=== PATIENT | female | born 1990 | race Native Hawaiian/Other Pacific Islander ===

== ENCOUNTER → 2020-12-09 10:33 | Outpatient (CLI) | payer OTHER, SELFPAY ==
[2020-12-09 11:50] LABS: HCG Quantitative /Beta subunit 76.8 mIU/mL
== END ==
PROVIDERS: Referring Provider Family Medicine; Visit Provider Family Medicine
DX: O03.9 Complete or unspecified spontaneous abortion without complication (principal)
CPT/HCPCS: 36415; 84702; 86850; 86900; 86901

== ENCOUNTER → 2021-05-10 13:56 | Outpatient (CLI) | payer OTHER, SELFPAY ==
[2021-05-10 15:54] LABS: HCG Quantitative /Beta subunit 457.6 mIU/mL
[2021-05-10 17:08] LABS: Follicle Stimulating Hormone < 0.66 mIU/mL; Luteinizing Hormone 0.61 mIU/mL
[2021-05-10 17:20] LABS: TSH w/ Reflex to FT4 1.17 uIU/mL (0.47-4.68)
== END ==
PROVIDERS: Referring Provider Registered Nurse Diabetes Educator; Visit Provider Registered Nurse Diabetes Educator
DX: N91.5 Oligomenorrhea, unspecified (principal); Z31.9 Encounter for procreative management, unspecified; Z87.59 Personal history of other complications of pregnancy, childbirth and the puerperium
CPT/HCPCS: 36415; 82627; 82670; 83001; 83002; 83498; 84146; 84403; 84443; 84702

== ENCOUNTER → 2021-05-12 07:04 | Outpatient (CLI) | payer OTHER, SELFPAY ==
[2021-05-12 09:26] LABS: HCG Quantitative /Beta subunit 981.1 mIU/mL
== END ==
PROVIDERS: Referring Provider Registered Nurse Diabetes Educator; Visit Provider Registered Nurse Diabetes Educator
DX: Z34.90 Encounter for supervision of normal pregnancy, unspecified, unspecified trimester (principal)
CPT/HCPCS: 36415; 84702

== ENCOUNTER → 2021-06-09 09:51 | Outpatient (CLI) | payer OTHER, SELFPAY ==
--- NOTE | 2021-06-09 09:52 | DI.US.S_ITS ---
PROCEDURE: US OB <= 14 WEEKS FETUS INDICATIONS: Initial US for Dating and Viability please, recent SAB OUTSIDE/PRIOR DATING DATA: Last menstrual period (LMP): Not available. LMP-based estimated date of delivery (ANNETTA): Not available. First dating scan (date and location): This exam. Estimated date of delivery (ANNETTA) from first dating scan: 01/15/2022. TECHNIQUE: Real-time scanning was performed of the fetus and maternal pelvic organs, with image documentation. Endovaginal scanning was also performed to better visualize the fetus and maternal ovaries. COMPARISON: None. FINDINGS: Embryo: There is a single living intrauterine with a pole and cardiac activity. heart rate is 173 BPM. The estimated gestational age is 8 weeks 4 days. Measurement variability in dating: +/- 4 weeks by LMP, +/- 7 days by mean sac diameter (use before 6 weeks gestation if crown-rump length not able to be measured), +/- 5 days by crown-rump length (up to 8 weeks 6 days gestation), +/- 7 days by crown-rump length (up to 13 weeks 6 days gestation). Maternal organs: Ovaries are grossly normal. IMPRESSION: 1. A single living intrauterine gestation with an estimated gestational age of 8 weeks 4 days corresponding to ultrasound ANNETTA 01/15/2022. Dictated by: Nilson Summers M.D. on 06/09/2021 at 11:15 Approved by: Nilson Summers M.D. on 06/09/2021 at 11:18
== END ==
PROVIDERS: PCP Family Medicine; Referring Provider Family Medicine; Visit Provider Family Medicine
DX: Z36.87 Encounter for antenatal screening for uncertain dates (principal); Z3A.08 8 weeks gestation of pregnancy
CPT/HCPCS: 76801; 76817

== ENCOUNTER → 2021-06-19 12:43 | Outpatient (CLI) | payer OTHER, SELFPAY ==
[2021-06-19 13:44] LABS: Appearance Urine UA CLEAR; Bilirubin Urine UA NEGATIVE (NEGATIVE); Color Urine UA YELLOW; Glucose Urine UA NEGATIVE (Negative); Ketones Urine UA NEGATIVE (NEGATIVE); Leukocyte Esterase Urine UA NEGATIVE (NEGATIVE); Nitrite Urine UA NEGATIVE (Negative); Occult Blood Urine UA TRACE-INTACT (Negative); Protein Urine UA NEGATIVE (Negative); Specific Gravity Urine UA 1.015 (1.000-1.035); Urobilinogen Urine UA 0.2 E.U./dL (0.2)
[2021-06-19 13:46] LABS: pH Urine UA 6.5 (4.5-8.0)
[2021-06-19 14:09] LABS: Hemoglobin A1C% w Est Avg Glu 5.4 % (4.0-6.0)
[2021-06-19 14:21] LABS: Alanine Aminotransferase 12 IU/L (<35); Albumin 3.9 g/dL (3.5-5.0); Albumin Globulin Ratio 1.1 (1.0-2.8); Alkaline Phosphatase 60 U/L (38-126); Aspartate Aminotransferase 22 IU/L (14-36); Bilirubin Total 0.1 mg/dL (0.2-1.3); Blood Urea Nitrogen 9 mg/dL (7-17); Calcium 9.4 mg/dL (8.4-10.2); Carbon Dioxide 25 mmol/L (22-32); Chloride 102 mmol/L (98-107); Estimated Glomerular Filt Rate > 60.0 mL/min (>60); Globulin 3.6 g/dL (1.7-4.1); Glucose 110 mg/dL (70-100); HEMOLYSIS < 15 (0-50); Potassium 3.6 mmol/L (3.4-5.1); Sodium 136 mmol/L (137-145); Total Protein 7.5 g/dL (6.3-8.2)
[2021-06-19 14:23] LABS: Add Manual Diff / Slide Review NO; Basophils Absolute Auto 0 /uL (0-100); Basophils Percent Auto 0.4 % (0-2); Eosinophils Absolute Auto 100 /uL (0-450); Eosinophils Percent Auto 0.6 % (2-4); Hematocrit 39.6 % (36-46); Hemoglobin 12.8 g/dL (12.0-16.0); Lymphocytes Absolute Auto 2100 /uL (1100-4500); Lymphocytes Percent Auto 18.8 % (25-40); Mean Corpuscular HGB Conc 32.3 % (30-36); Mean Corpuscular Hemoglobin 26.9 PG (26-34); Mean Corpuscular Volume 83.2 fL (80-100); Monocytes Absolute Auto 700 /uL (0-900); Neutrophils Absolute Auto 8400 /uL (1500-7000); Neutrophils Percent Auto 74.2 % (50-75); Platelet Count 273 X10^3/uL (150-400); Red Blood Cell Count 4.77 X10^6/uL (4.0-5.2); Red Cell Distribution Width 13.4 % (11.6-14.8); White Blood Cell Count 11.3 X10^3/uL (4.5-11.0)
[2021-06-19 17:28] LABS: HIV 1 & 2 Ab/Ag 4th Gen Combo NEGATIVE (NEGATIVE); Hep C Virus Ab w/Reflex Quant NEGATIVE s/c (NEGATIVE); Hepatitis B Surface Antigen NEGATIVE s/c (NEGATIVE)
[2021-06-20 08:16] LABS: RPR Screen Non Reactive (Non Reactive)
[2021-06-20 08:46] LABS: Varicella IgG Antibody 323 index (Immune >165)
[2021-06-20 15:07] LABS: Protein (Total) Urine Random 19 mg/dL (0-12)
[2021-06-20 17:12] LABS: Collection Time Urine 2400 Hours
[2021-06-20 17:13] LABS: Total Protein 24 Hour Urine 209 mg/day (42-225); Total Volume Urine 1100 mL
== END ==
PROVIDERS: PCP Family Medicine; Referring Provider Family Medicine; Visit Provider Family Medicine
DX: Z34.81 Encounter for supervision of other normal pregnancy, first trimester (principal); I10 Essential (primary) hypertension
CPT/HCPCS: 36415; 80053; 80055; 81003; 82043; 82570; 83036; 84156; 86787; 86803; 86850; 86900; 86901; 87086; 87389

== ENCOUNTER 2021-07-06 14:56 | Emergency (ER) | payer OTHER, SELFPAY ==
[2021-07-06 15:36] VITALS: BP 140/99; PULSE 83; RESP 16; TEMP 36.3; O2SAT 95; BMI 25.6
[2021-07-06] MEDS: FLUORESCEIN 1 MG STRIP EYE-LEFT (17:47)
[2021-07-06] MEDS: PROPARACAINE 0.5% OPHTH SOL 2 DROPS EYE-OP (17:47)
--- NOTE | 2021-07-06 17:56 | ED_ITS ---
HPI - Eye Problem <Faraz Seals PA-C - Last Filed: 07/06/21 18:02> General Chief complaint: Eye Problems Stated complaint: Left Eye Watering, Irritation Time Seen by Provider: 07/06/21 16:42 History of Present Illness HPI Narrative: Alexa presents today with chief complaint of left eye irritation, redness and watering that started 2 days ago. She reports that she wears contacts and is concerned there may be an infection. She reports associated symptoms of light sensitivity. She denies any significant difficulty seeing, pain with eye movement, facial swelling, fever, headache or any other acute concerns or complaints. Related Data Home Medications Medication Instructions Recorded Confirmed prenat.vits,sowmay,kqo-fzzk-nfony 1 tab PO DAILY 06/16/21 06/16/21 Previous Rx's Medication Instructions Recorded polymyxin B sulfate 10,000 2 drp EYE-LEFT QID 7 Days #10 ml 07/06/21 unit-trimethoprim 1 mg/mL eye drops Allergies Allergy/AdvReac Type Severity Reaction Status Date / Time No Known Drug Allergies Allergy Unverified 05/10/21 13:17 Review of Systems <Faraz Seals PA-C - Last Filed: 07/06/21 18:02> Review of Systems Narrative: As per HPI Patient History <Faraz Seals PA-C - Last Filed: 07/06/21 18:02> Medical History (Updated 07/06/21 @ 18:02 by Faraz Seals PA-C) Elevated blood pressure reading without diagnosis of hypertension Oligomenorrhea Seizure in childhood (~1990) Surgical History (Updated 06/16/21 @ 10:20 by Kalli Lee RN) [place] teeth extracted Family History (Updated 06/16/21 @ 10:30 by Kalli Lee RN) Mother Diabetes mellitus Father Diabetes mellitus Grandmother Diabetes mellitus Grandfather Diabetes mellitus Grandmother Diabetes mellitus Grandfather Diabetes mellitus Social History marital status: number of children: 2 household members: spouse and children (2 daughters) lives independently: Yes caregiver/support person: No housing: house pets and animals: No education level: college (Some college, [employer]) occupational status: employed ([employer]) current occupational exposures/hazards: No zonia/confucianist: Jain special zonia needs: No seatbelt use: always helmet use: Yes water heater temp set < 120 deg: No working smoke detector in home: Yes fire extinguisher in home: No carbon monox detector in home: No firearms in home: No do you feel safe at home: Yes Smoking Status: Never smoker second hand exposure: Yes ( smokes outside, she sometimes gets off-gas fumes. ) alcohol intake: former (Occasionally, pre-. ) substance use type: does not use during the past year weight has: increased > 10 lbs well-balanced diet: about half the time (Enc'd online nutrition class; declines nutrition consult now - will ask later if desired. ) daily servings fruits/ve-4 caffeine: Yes (1/2 soda sometimes. ) eating out: 1-3 times/week Type(s) of exercise: walking and normal ROM and activity frequency: daily duration: 15-30 minutes/day Smoking Status: Never smoker Exam <Faraz Seals PA-C - Last Filed: 07/06/21 18:02> Narrative Exam Narrative: Exam Narrative: Const General: cooperative, healthy appearing, comfortable, no acute distress, well developed and well groomed Nutritional Appearance: average body habitus Orientation: alert and oriented x3 HENMT Head: normal to inspection and atraumatic Ears: hearing grossly normal bilaterally Nose: external nose normal and nares normal Face and sinus: normal facial exam Eyes: Right eye grossly normal in appearance. Periorbital soft tissue normal in appearance bilaterally. Left conjunctival injection noted. Fluorescein stain applied to left eye. Small corneal abrasion noted. Neck Neck: normal visual inspection and supple Resp Effort & Inspection: normal respiratory effort, able to speak in complete sentences, no audible wheezes, not labored, no nasal flaring and no respiratory distress Neuro General: alert, oriented x3, gait normal, tone normal and moves all extremities Cognition: normal cognition Speech: speech normal Gait: normal gait Psych Appearance: grossly normal and well kempt Mental Status: mental status grossly normal Speech and Movement: speech and movement normal Mood: congruent mood Affect: normal affect Initial Vital Signs Initial Vital Signs: Vital Signs Temperature 97.3 F L 07/06/21 15:36 Pulse Rate 83 07/06/21 15:36 Respiratory Rate 16 07/06/21 15:36 Blood Pressure 140/99 H 07/06/21 15:36 Pulse Oximetry 95 07/06/21 15:36 <Henrry Hogue DO - Last Filed: 07/06/21 18:05> Initial Vital Signs Initial Vital Signs: Vital Signs Temperature 97.3 F L 07/06/21 15:36 Pulse Rate 83 07/06/21 15:36 Respiratory Rate 16 07/06/21 15:36 Blood Pressure 140/99 H 07/06/21 15:36 Pulse Oximetry 95 07/06/21 15:36 Course <Faraz Seals PA-C - Last Filed: 07/06/21 18:02> Orders Ordered: Discontinued Medications Fluorescein Sodium (Fluorescein 1 Mg Strip) 1 mg EYE-LEFT NOW ONE Stop: 07/06/21 17:15 Last Admin: 07/06/21 17:47 Dose: 1 mg Documented by: SARAH Proparacaine HCl (Proparacaine 0.5% Ophth Ines) 2 drops EYE-OP NOW ONE Stop: 07/06/21 17:15 Last Admin: 07/06/21 17:47 Dose: 2 drop Documented by: SARAH Vital Signs Vital signs: Vital Signs - 8 hr 07/06/21 15:36 Temperature 97.3 F L Pulse Rate 83 Respiratory Rate 16 Blood Pressure 140/99 H Pulse Oximetry 95 <Henrry Hogue DO - Last Filed: 07/06/21 18:05> Orders Ordered: Discontinued Medications Fluorescein Sodium (Fluorescein 1 Mg Strip) 1 mg EYE-LEFT NOW ONE Stop: 07/06/21 17:15 Last Admin: 07/06/21 17:47 Dose: 1 mg Documented by: SARAH Proparacaine HCl (Proparacaine 0.5% Ophth Ines) 2 drops EYE-OP NOW ONE Stop: 07/06/21 17:15 Last Admin: 07/06/21 17:47 Dose: 2 drop Documented by: SARAH Vital Signs Vital signs: Vital Signs - 8 hr 07/06/21 15:36 Temperature 97.3 F L Pulse Rate 83 Respiratory Rate 16 Blood Pressure 140/99 H Pulse Oximetry 95 MDM - Eye Problem <Faraz Seals PA-C - Last Filed: 07/06/21 18:02> MDM Narrative Medical decision making narrative: Differential diagnosis includes viral conjunctivitis, bacterial conjunctivitis, corneal ulceration. No obvious ulceration noted. She wears contacts so a bacterial conjunctivitis is certainly on the differential. We will treat with antibiotics at this time. Strict ER return precautions were discussed. Patient verbalizes understanding and agrees to plan and has no further concerns at this time. Thank you A [id number] system was used with the dictation of this note. Please disregard any spelling or grammatical errors. Discharge Plan Departure Patient Disposition: Home Clinical Impression: Corneal abrasion Qualifiers: Encounter type: initial encounter Laterality: left Qualified Code(s): S05.02XA - Injury of conjunctiva and corneal abrasion without foreign body, left eye, initial encounter Activity Restrictions/Additional Instructions: It was very nice to meet you this evening. Please use the topical antibiotics as recommended. Recommend abstaining from using your contacts until the infection is healed. Please use a pair glasses if possible or a pair of new contacts. Return precautions include fever, worsening pain, vision changes, or any other acute concerns or complaints. Thank you Faraz Seals PAC Prescriptions: New polymyxin B sulf-trimethoprim 10,000 unit- 1 mg/mL drops 2 drp EYE-LEFT QID 7 Days Qty: 10 RF: 0 No Action prenat.vits,sowmya,qqx-neay-gyfck Tablet 1 tab PO DAILY RF: 0 Referrals: Daisy Penaloza MD [Primary Care Provider] - <Henrry Hogue DO - Last Filed: 07/06/21 18:05> Cosign ED Attending Cosignature Attestation: Dr Hogue Co-Sign Statement: I was available for consultation during this patient's emergency department visit. This chart is signed by myself for administrative purposes only. I did not have direct contact with this patient during this visit. They were seen independently by the APC.
[2021-07-06 18:20] VITALS: BP 130/80; PULSE 80; RESP 16; TEMP 36.4; O2SAT 96
== END 2021-07-06 18:20 | disposition home or self-care (01) ==
PROVIDERS: Emergency Provider Physician Assistant; PCP Family Medicine
DX: S05.02XA Injury of conjunctiva and corneal abrasion without foreign body, left eye, initial encounter (principal)
CPT/HCPCS: 99282

== ENCOUNTER → 2021-07-07 15:34 | Outpatient (CLI) | payer OTHER, SELFPAY | PROVIDERS: PCP Family Medicine; Referring Provider Family Medicine; Visit Provider Family Medicine | DX: Z34.90 Encounter for supervision of normal pregnancy, unspecified, unspecified trimester (principal); Z3A.12 12 weeks gestation of pregnancy | CPT/HCPCS: 36415 ==

== ENCOUNTER → 2021-08-31 11:45 | Outpatient (CLI) | payer OTHER, SELFPAY ==
--- NOTE | 2021-08-31 11:45 | DI.US.S_ITS ---
PROCEDURE: US OB >= 14 WEEKS FETUS INDICATIONS: ANATOMY SCREENING OUTSIDE/PRIOR DATING DATA: Last menstrual period (LMP): Unknown. First dating scan (date and location): June 09, 2021 Estimated date of delivery (ANNETTA) from first dating scan: January 15, 2022 TECHNIQUE: Real-time scanning was performed of the fetus, with image documentation and biometric measurements. COMPARISON: Reference is made to the 1st trimester OB ultrasound dated June 09, 2021. FINDINGS: General: A single living intrauterine gestation is present. Presentation: Cephalic Placenta: Placental position is anterior, without previa. Amniotic fluid index: 12 cm, normal range is 5-24 cm. heart rate: 173 beats per minute. Maternal cervical canal: 3.4 cm long. Normal lower limit is 2.5 cm. biometrics: Biparietal diameter: 4.7 cm Head circumference: 17.8 cm Abdominal circumference: 14.1 Femur length: 3.3 Estimated gestational age from initial scan: not applicable. Composite gestational age from present scan: 20 weeks Estimated weight and percentile: 319 g; 19 percent Measurement variability for biometric dating: +/- 7 days from 14 weeks to 15 weeks 6 days gestation, +/- 10 days from 16 weeks to 21 weeks 6 days gestation, +/- 2 weeks from 22 weeks to 27 weeks 6 days gestation, +/- 3 weeks for 28 weeks gestation or later. weight reference: 4500 g or EFW >90/95% is considered macrosomia or large for gestational age. EFW <10% is small for gestational age. EFW 5% or less is considered intra-uterine growth restriction. Anatomic survey: Neuro: Ventricles are non-dilated at less than 10 mm. Cisterna magna is normal at 3-11 mm. Cerebellum is normal in size and morphology. Nuchal skin fold: Normal at less than 6 mm between 14-21 weeks gestational age. Face: Nose and lips, facial profile are normal. Spine: No evidence for spina bifida. Heart: 4-chambered heart is present, with normal ventricular outflow tracts. Diaphragm: Diaphragm is intact. Stomach: Left-sided stomach is present. Kidneys: No hydronephrosis. Normal is less than 5 mm in 2nd trimester, less than 7 mm in 3rd trimester. Cord: 3-vessel cord has orthotopic insertion. Bladder: Normal in size. Extremities: All 4 extremities identified. IMPRESSION: Single intrauterine gestation as detailed above. Dictated by: Arnol Gutiérrez M.D. on 08/31/2021 at 16:41 Approved by: Arnol Gutiérrez M.D. on 08/31/2021 at 16:54
== END ==
PROVIDERS: PCP Family Medicine; Referring Provider Family Medicine; Visit Provider Family Medicine
DX: Z36.89 Encounter for other specified antenatal screening (principal); Z3A.20 20 weeks gestation of pregnancy
CPT/HCPCS: 76811

== ENCOUNTER → 2021-10-24 09:26 | Outpatient (CLI) | payer OTHER, SELFPAY ==
--- NOTE | 2021-10-24 09:30 | DI.US.S_ITS ---
PROCEDURE: US OB LIMITED INDICATIONS: growth scan OUTSIDE/PRIOR DATING DATA: First dating scan (date and location): 06/09/2021. Estimated date of delivery (ANNETTA) from first dating scan: 01/15/2022. The calculations are made using the ultrasound ANNETTA of 01/15/2022. TECHNIQUE: Real-time scanning was performed of the fetus, with image documentation and biometric measurements. Endovaginal scanning: No COMPARISON: [facility], , OB <= 14 WEEKS FETUS, 06/09/2021, 10:02. [facility], , US OB >= 14 WEEKS FETUS, 08/31/2021, 12:21. FINDINGS: General: A single living intrauterine gestation is present. Presentation: Vertex. Placenta: Placental position is anterior , without previa. Amniotic fluid index: 11.3 cm, normal range is 5-24 cm. heart rate: 131 beats per minute. Maternal cervical canal: 5.5 cm long. Normal lower limit is 2.5 cm. biometrics: Biparietal diameter: 27 weeks Head circumference: 27.5 weeks Abdominal circumference: 25 weeks 5 days Femur length: 27 weeks 0 days Clinically estimated gestational age: 28 weeks 1 day Composite gestational age from present scan: 26 weeks 6 days Estimated weight and percentile: 930 g; 3rd percentile. Other: Not applicable. IMPRESSION: Single living IUP redemonstrated and interval growth is less than expected with estimated weight at the 3rd percentile. Developing intrauterine growth restriction cannot be excluded. Close clinical and imaging follow-up are recommended. We strive to produce accurate, complete, and clear reports of imaging services. To assist us in improving patient care, this report was composed using standard report templates and voice recognition software. Therefore, it may contain abnormal punctuation, insertions and/or omissions. Occasional wrong-word or sound-alike substitutions may occur. Though we review the report and make efforts to correct it, we do recommend that the report be read carefully in proper context to recognize any text inaccuracies. Dictated by: Faraz HILL Interpreted: Nilson Summers MD on 10/24/2021 at 13:30 Transcribed by: PETTY on 10/24/2021 at 13:43 Approved by: Nilson Summers M.D. on 10/24/2021 at 16:47
[2021-10-24 11:52] LABS: Hematocrit 36.6 % (36-46); Hemoglobin 11.9 g/dL (12.0-16.0)
[2021-10-24 12:14] LABS: GTT (PREG) 1 Hour PP 50gm Dose 126 mg/dL (76-139)
== END ==
PROVIDERS: PCP Family Medicine; Referring Provider Family Medicine; Visit Provider Family Medicine
DX: O16.2 Unspecified maternal hypertension, second trimester (principal); Z3A.26 26 weeks gestation of pregnancy
CPT/HCPCS: 36415; 76815; 82950; 85014; 85018; 86850

== ENCOUNTER 2021-10-25 12:56 | Outpatient (CLI) | payer OTHER, SELFPAY ==
--- NOTE | 2021-10-25 13:09 | DI.US.S_ITS ---
PROCEDURE: US OB LIMITED INDICATIONS: GROWTH RESTRICTION - UMBILICAL DOPPLERS OUTSIDE/PRIOR DATING DATA: Last menstrual period (LMP): Unknown LMP-based estimated date of delivery (ANNETTA): Unknown First dating scan (date and location): 06/09/2021 Estimated date of delivery (ANNETTA) from first dating scan: 01/15/2022 The calculations are made using the study generated ANNETTA of 01/15/2022 TECHNIQUE: Real-time scanning was performed of the fetus, with image documentation. COMPARISON: [facility], US OB LIMITED, 10/24/2021, 12:40. FINDINGS: A single living intrauterine gestation is present. Presentation: Vertex. Placenta: Placental position is anterior, without previa. Amniotic fluid index: 15.9 cm, normal range is 5-24 cm. Single deepest vertical pocket is 5.4 cm. heart rate: 141 beats per minute. Maternal cervical canal: Not evaluated Estimated gestational age from initial scan: 28 weeks, 2 days. biophysical profile: Tone: 2 points. Movement: 2 points Respiration: 2 points. Largest pocket: 2 points. Umbilical artery S/D ratio measures 2.9 , 2.9, 3.6 in placental, midportion and umbilical region. Echogenic bowel is noted in right lower quadrant and is of indeterminate significance. IMPRESSION: 1. Single live intrauterine with fetus in vertex presentation. heart rate is 141 beats per minute. Normal amount of amniotic fluid. 2. Normal biophysical profile score of 8/8. Normal umbilical artery S/D ratio. 3. Nonspecific echogenic bowel loops seen in right lower quadrant, suggest ultrasound follow-up. Dictated by: Manoj Velazquez M.D. on 10/25/2021 at 14:53 Approved by: Manoj Velazquez M.D. on 10/25/2021 at 14:57
== END 2021-10-25 14:11 | disposition home or self-care (01) ==
LOC: LABOR 13:39 → OB 10-26 13:27
PROVIDERS: PCP Nurse Practitioner Family; Referring Provider Family Medicine; Visit Provider Family Medicine
DX: O36.5930 Maternal care for other known or suspected poor fetal growth, third trimester, not applicable or unspecified (principal); Z3A.28 28 weeks gestation of pregnancy
CPT/HCPCS: 59025; 76815; 76819; G0378; G0379

== ENCOUNTER 2021-10-27 11:03 | Outpatient (CLI) | payer OTHER, SELFPAY ==
--- NOTE | 2021-10-27 11:53 | P.TNLD_ITS ---
Visit Information Visit Information Date of evaluation: 10/27/21 Primary OB Provider: Daisy Penaloza Reason for Evaluation: Yes non-stress test non-stress test reason: other (IUGR) Comments/Additional reasons for admission: Pt is a 31yo at 28w4d here for NST for IUGR. She is feeling regular movement. No LOF, contractions, vaginal bleeding. [facility] Medical History (Updated 10/27/21 @ 12:35 by Daisy Penaloza MD) Elevated blood pressure reading without diagnosis of hypertension Oligomenorrhea Seizure in childhood (~1990) Surgical History (Updated 06/16/21 @ 10:20 by Kalli Lee RN) [place] teeth extracted Family History (Updated 06/16/21 @ 10:30 by Kalli Lee RN) Mother Diabetes mellitus Father Diabetes mellitus Grandmother Diabetes mellitus Grandfather Diabetes mellitus Grandmother Diabetes mellitus Grandfather Diabetes mellitus Social History marital status: number of children: 2 household members: spouse and children lives independently: Yes caregiver/support person: No housing: house pets and animals: No education level: college occupational status: employed current occupational exposures/hazards: No zonia/mormon: Baptist special zonia needs: No seatbelt use: always helmet use: Yes water heater temp set < 120 deg: No working smoke detector in home: Yes fire extinguisher in home: No carbon monox detector in home: No firearms in home: No do you feel safe at home: Yes Smoking Status: Never smoker second hand exposure: Yes ( smokes outside, she sometimes gets off-gas fumes. ) alcohol intake: former substance use type: does not use during the past year weight has: increased > 10 lbs well-balanced diet: about half the time daily servings fruits/ve-4 caffeine: Yes (1/2 soda sometimes. ) eating out: 1-3 times/week Type(s) of exercise: walking and normal ROM and activity frequency: daily duration: 15-30 minutes/day Evaluation Evaluation Baseline heart rate: 140 Variability: Moderate (11-25) monitor accelerations: Present Monitor Decelerations: Absent Category of Tracing: Reactive Diagnosis, Plan/Disposition Final Diagnosis (1) IUGR (intrauterine growth restriction): Status: Acute Plan/Disposition Plan: Pt is a 31yo at 28w4d here for NST for IUGR. Reactive NST. BPP/SELMA normal on 10/24 with normal UA dopplers. Continue twice weekly testing. OB Disposition: home
== END 2021-10-27 12:00 | disposition home or self-care (01) ==
LOC: OB 10-30 11:14
PROVIDERS: PCP Family Medicine; Referring Provider Family Medicine; Visit Provider Family Medicine
DX: O36.5930 Maternal care for other known or suspected poor fetal growth, third trimester, not applicable or unspecified (principal); O16.3 Unspecified maternal hypertension, third trimester; Z3A.28 28 weeks gestation of pregnancy
CPT/HCPCS: 36415; 59025; 80053; 82570; 84156; 85025; G0378; G0379

== ENCOUNTER → 2021-10-27 12:42 | Outpatient (CLI) | payer OTHER, SELFPAY ==
[2021-10-27 13:30] LABS: Add Manual Diff / Slide Review NO; Basophils Absolute Auto 0 /uL (0-100); Basophils Percent Auto 0.2 % (0-2); Eosinophils Absolute Auto 100 /uL (0-450); Eosinophils Percent Auto 0.4 % (2-4); Hematocrit 35.6 % (36-46); Hemoglobin 11.7 g/dL (12.0-16.0); Lymphocytes Absolute Auto 2000 /uL (1100-4500); Lymphocytes Percent Auto 16.5 % (25-40); Mean Corpuscular HGB Conc 32.9 % (30-36); Mean Corpuscular Hemoglobin 27.7 PG (26-34); Mean Corpuscular Volume 84.1 fL (80-100); Monocytes Absolute Auto 800 /uL (0-900); Monocytes Percent Auto 6.6 % (3-14); Neutrophils Absolute Auto 9300 /uL (1500-7000); Neutrophils Percent Auto 76.3 % (50-75); Platelet Count 262 X10^3/uL (150-400); Red Blood Cell Count 4.23 X10^6/uL (4.0-5.2); Red Cell Distribution Width 13.3 % (11.6-14.8); White Blood Cell Count 12.2 X10^3/uL (4.5-11.0)
[2021-10-27 14:01] LABS: Alanine Aminotransferase 8 IU/L (<35); Albumin 3.8 g/dL (3.5-5.0); Albumin Globulin Ratio 1.1 (1.0-2.8); Alkaline Phosphatase 78 U/L (38-126); Aspartate Aminotransferase 17 IU/L (14-36); BUN Creatinine Ratio 8.1 (6-22); Bilirubin Total 0.2 mg/dL (0.2-1.3); Blood Urea Nitrogen 5 mg/dL (7-17); Calcium 9.9 mg/dL (8.4-10.2); Carbon Dioxide 28 mmol/L (22-32); Chloride 102 mmol/L (98-107); Estimated Glomerular Filt Rate > 60.0 mL/min (>60); Globulin 3.4 g/dL (1.7-4.1); Glucose 101 mg/dL (70-100); HEMOLYSIS < 15 (0-50); Potassium 4.2 mmol/L (3.4-5.1); Sodium 136 mmol/L (137-145); Total Protein 7.2 g/dL (6.3-8.2)
[2021-10-31 10:53] LABS: Protein (Total) Urine Random 5 mg/dL (0-12); Protein Creatinine Ratio Urine 0.02 GRAM/24H
== END ==
PROVIDERS: PCP Family Medicine; Referring Provider Family Medicine; Visit Provider Family Medicine
DX: I10 Essential (primary) hypertension (principal)
CPT/HCPCS: 80053; 85025

== ENCOUNTER → 2021-10-31 09:33 | Outpatient (CLI) | payer OTHER, SELFPAY ==
[2021-10-31 10:51] LABS: Collection Time Urine 24 Hours; Protein (Total) Urine Random 11 mg/dL (0-12); Total Protein 24 Hour Urine 138 mg/day (42-225); Total Volume Urine 1250 mL
== END ==
PROVIDERS: PCP Family Medicine; Referring Provider Family Medicine; Visit Provider Family Medicine
DX: I10 Essential (primary) hypertension (principal)
CPT/HCPCS: 84156

== ENCOUNTER 2021-10-31 09:34 | Outpatient (CLI) | payer OTHER, SELFPAY ==
--- NOTE | 2021-10-31 09:52 | DI.US.S_ITS ---
PROCEDURE: US OB LIMITED INDICATIONS: SMALL FOR DATES. CORD DOPPLER. BIOPHYSICAL PROFILE. OUTSIDE/PRIOR DATING DATA: Last menstrual period (LMP): Unknown. First dating scan (date and location): [facility]; June 09, 2021. Estimated date of delivery (ANNETTA) from first dating scan: January 15, 2022. The calculations are made using the ultrasound ANNETTA of January 15, 2021. TECHNIQUE: Real-time scanning was performed of the fetus, with image documentation. COMPARISON: [facility], , US OB LIMITED, 10/25/2021, 13:32. FINDINGS: A single living intrauterine gestation is present. Presentation: Vertex. Placenta: Placental position is anterior, without previa. Amniotic fluid index: 15.6 cm, normal range is 5-24 cm. Single deepest vertical pocket is 6.4 cm. heart rate: 144 beats per minute. Maternal cervical canal: Not well seen. Clinically estimated gestational age: 29 weeks, 1 day Estimated gestational age from initial scan: 28 weeks, 5 days. BPD: 7.1 cm HC: 26.8 cm AC: 24.2 cm FL: 5.5 cm Other: Chest/diaphragm: Normal. Stomach/abdomen: Normal. Kidneys/bladder: Normal BPP: 8/8 Cord Doppler SD ratios: 2.02-295 IMPRESSION: Live single intrauterine gestation as detailed above. Dictated by: Arnol Gutiérrez M.D. on 10/31/2021 at 11:04 Approved by: Arnol Gutiérrez M.D. on 10/31/2021 at 11:09
--- NOTE | 2021-10-31 10:16 | PM.OBTRLD ---
Visit Information Visit Information Date of evaluation: 10/31/21 Primary OB Provider: Daisy Penaloza Reason for Evaluation: Yes non-stress test non-stress test reason: other Comments/Additional reasons for admission: 31yo at 29w1d here for NST for IUGR. Pt is feeling her baby move regularly. No LOF, vaginal bleeding, contractions. [facility] Medical History (Updated 10/27/21 @ 12:35 by Daisy Penaloza MD) Elevated blood pressure reading without diagnosis of hypertension Oligomenorrhea Seizure in childhood (~1990) Surgical History (Updated 06/16/21 @ 10:20 by Kalli Lee RN) [place] teeth extracted Family History (Updated 06/16/21 @ 10:30 by Kalli Lee RN) Mother Diabetes mellitus Father Diabetes mellitus Grandmother Diabetes mellitus Grandfather Diabetes mellitus Grandmother Diabetes mellitus Grandfather Diabetes mellitus Social History marital status: number of children: 2 household members: spouse and children lives independently: Yes caregiver/support person: No housing: house pets and animals: No education level: college occupational status: employed current occupational exposures/hazards: No zonia/yazidi: Taoist special zonia needs: No seatbelt use: always helmet use: Yes water heater temp set < 120 deg: No working smoke detector in home: Yes fire extinguisher in home: No carbon monox detector in home: No firearms in home: No do you feel safe at home: Yes Smoking Status: Never smoker second hand exposure: Yes ( smokes outside, she sometimes gets off-gas fumes. ) alcohol intake: former substance use type: does not use during the past year weight has: increased > 10 lbs well-balanced diet: about half the time daily servings fruits/ve-4 caffeine: Yes (1/2 soda sometimes. ) eating out: 1-3 times/week Type(s) of exercise: walking and normal ROM and activity frequency: daily duration: 15-30 minutes/day Evaluation Evaluation Baseline heart rate: 140 Variability: Moderate (11-25) monitor accelerations: Present Monitor Decelerations: Absent Category of Tracing: Reactive Diagnosis, Plan/Disposition Final Diagnosis (1) Chronic hypertension: Status: Acute (2) IUGR (intrauterine growth restriction): Status: Acute Plan/Disposition Plan: 31yo at 29w1d here for NST for IUGR. NST reactive. UA dopplers reassuring. BPP 07/02. Did repeat growth today to confirm prior, and showed growth > 20th percentile. Will still continue with testing and MFM referral to confirm size prior to potentially discontinuing. OB Disposition: home
--- NOTE | 2021-10-31 10:19 | DI.US.S_ITS ---
PROCEDURE: US OB LIMITED INDICATIONS: SMALL FOR DATES. CORD DOPPLER. BIOPHYSICAL PROFILE. OUTSIDE/PRIOR DATING DATA: Last menstrual period (LMP): Unknown. First dating scan (date and location): [facility]; June 09, 2021. Estimated date of delivery (ANNETTA) from first dating scan: January 15, 2022. The calculations are made using the ultrasound ANNETTA of January 15, 2021. TECHNIQUE: Real-time scanning was performed of the fetus, with image documentation. COMPARISON: [facility], , US OB LIMITED, 10/25/2021, 13:32. FINDINGS: A single living intrauterine gestation is present. Presentation: Vertex. Placenta: Placental position is anterior, without previa. Amniotic fluid index: 15.6 cm, normal range is 5-24 cm. Single deepest vertical pocket is 6.4 cm. heart rate: 144 beats per minute. Maternal cervical canal: Not well seen. Clinically estimated gestational age: 29 weeks, 1 day Estimated gestational age from initial scan: 28 weeks, 5 days. BPD: 7.1 cm HC: 26.8 cm AC: 24.2 cm FL: 5.5 cm Other: Chest/diaphragm: Normal. Stomach/abdomen: Normal. Continued Report - Page 2 of 2 PATIENT NAME: JOSE RAMON GRAF : 1990 EXAM DATE: 10/31/2021 10:19 ORD. .: ANUSHA SIMPSON M.D. CC: MODALITY: US PATIENT TYPE: In CONTRAST MEDIA: STATION ID: [id number] FLUORO TIME: Kidneys/bladder: Normal BPP: 8/8 Cord Doppler SD ratios: 2.02-295 IMPRESSION: Live single intrauterine gestation as detailed above. Dictated by: Arnol Gutiérrez M.D. on 10/31/2021 at 11:04 Approved by: Arnol Gutiérrez M.D. on 10/31/2021 at 11:09
== END 2021-10-31 10:45 | disposition home or self-care (01) ==
LOC: LABOR 10:55 → OB 11-01 11:41
PROVIDERS: PCP Family Medicine; Referring Provider Family Medicine; Visit Provider Family Medicine
DX: O36.5930 Maternal care for other known or suspected poor fetal growth, third trimester, not applicable or unspecified (principal); O10.913 Unspecified pre-existing hypertension complicating pregnancy, third trimester; Z3A.29 29 weeks gestation of pregnancy; I10 Essential (primary) hypertension
CPT/HCPCS: 59025; 76815; 76819; 76820; 84156; G0378; G0379

== ENCOUNTER 2021-11-02 09:41 | Outpatient (CLI) | payer OTHER, SELFPAY | END 2021-11-02 10:18 | disposition home or self-care (01) | LOC: LABOR 10:03 → OB 11-03 14:04 | PROVIDERS: PCP Family Medicine; Referring Provider Family Medicine; Visit Provider Family Medicine | DX: O36.5930 Maternal care for other known or suspected poor fetal growth, third trimester, not applicable or unspecified (principal); Z3A.29 29 weeks gestation of pregnancy | CPT/HCPCS: 59025; G0378; G0379 ==

== ENCOUNTER → 2021-12-05 09:19 | Outpatient (CLI) | payer OTHER, SELFPAY ==
[2021-12-05 09:46] LABS: Add Manual Diff / Slide Review NO; Basophils Absolute Auto 0 /uL (0-100); Basophils Percent Auto 0.5 % (0-2); Eosinophils Absolute Auto 100 /uL (0-450); Eosinophils Percent Auto 0.6 % (2-4); Hematocrit 36.7 % (36-46); Hemoglobin 11.9 g/dL (12.0-16.0); Lymphocytes Absolute Auto 2200 /uL (1100-4500); Mean Corpuscular HGB Conc 32.4 % (30-36); Mean Corpuscular Hemoglobin 27.7 PG (26-34); Mean Corpuscular Volume 85.6 fL (80-100); Monocytes Absolute Auto 700 /uL (0-900); Monocytes Percent Auto 6.3 % (3-14); Neutrophils Absolute Auto 7900 /uL (1500-7000); Neutrophils Percent Auto 72.6 % (50-75); Platelet Count 220 X10^3/uL (150-400); Red Blood Cell Count 4.28 X10^6/uL (4.0-5.2); Red Cell Distribution Width 14.4 % (11.6-14.8); White Blood Cell Count 10.9 X10^3/uL (4.5-11.0)
[2021-12-05 10:38] LABS: Alanine Aminotransferase 10 IU/L (<35); Albumin 3.5 g/dL (3.5-5.0); Alkaline Phosphatase 100 U/L (38-126); Aspartate Aminotransferase 19 IU/L (14-36); BUN Creatinine Ratio 9.9 (6-22); Bilirubin Total 0.3 mg/dL (0.2-1.3); Blood Urea Nitrogen 7 mg/dL (7-17); Calcium 9.4 mg/dL (8.4-10.2); Carbon Dioxide 28 mmol/L (22-32); Chloride 104 mmol/L (98-107); Creatinine Urine Random 190.5 mg/dL; Estimated Glomerular Filt Rate > 60.0 mL/min (>60); Globulin 3.5 g/dL (1.7-4.1); Glucose 117 mg/dL (70-100); HEMOLYSIS < 15 (0-50); Potassium 3.7 mmol/L (3.4-5.1); Protein (Total) Urine Random 7 mg/dL (0-12); Protein Creatinine Ratio Urine 0.03 GRAM/24H; Sodium 135 mmol/L (137-145)
== END ==
PROVIDERS: PCP Family Medicine; Referring Provider Family Medicine; Visit Provider Family Medicine
DX: I10 Essential (primary) hypertension (principal)
CPT/HCPCS: 36415; 80053; 82570; 84156; 85025

== ENCOUNTER 2021-12-05 09:20 | Outpatient (CLI) | payer OTHER, SELFPAY ==
--- NOTE | 2021-12-05 11:04 | P.TNLD_ITS ---
Visit Information Visit Information Date of evaluation: 12/05/21 Primary OB Provider: Daisy Penaloza Reason for Evaluation: Yes non-stress test non-stress test reason: hypertension/pre-eclampsia Comments/Additional reasons for admission: 31yo at 34w1d here for NST for chronic HTN. Pt asymptomatic. She is feeling her baby move. No vaginal bleeding, contractions, LOF. [facility] Medical History (Updated 11/08/21 @ 12:05 by Daisy Penaloza MD) Elevated blood pressure reading without diagnosis of hypertension Oligomenorrhea Seizure in childhood (~1990) Surgical History (Updated 06/16/21 @ 10:20 by Kalli Lee RN) [place] teeth extracted Family History (Updated 06/16/21 @ 10:30 by Kalli Lee RN) Mother Diabetes mellitus Father Diabetes mellitus Grandmother Diabetes mellitus Grandfather Diabetes mellitus Grandmother Diabetes mellitus Grandfather Diabetes mellitus Social History marital status: number of children: 2 household members: spouse and children lives independently: Yes caregiver/support person: No housing: house pets and animals: No education level: college occupational status: employed current occupational exposures/hazards: No zonia/restoration: Anabaptist special zonia needs: No seatbelt use: always helmet use: Yes water heater temp set < 120 deg: No working smoke detector in home: Yes fire extinguisher in home: No carbon monox detector in home: No firearms in home: No do you feel safe at home: Yes Smoking Status: Never smoker second hand exposure: Yes ( smokes outside, she sometimes gets off-gas fumes. ) alcohol intake: former substance use type: does not use during the past year weight has: increased > 10 lbs well-balanced diet: about half the time daily servings fruits/ve-4 caffeine: Yes (1/2 soda sometimes. ) eating out: 1-3 times/week Type(s) of exercise: walking and normal ROM and activity frequency: daily duration: 15-30 minutes/day Evaluation Evaluation Baseline heart rate: 130 Variability: Moderate (11-25) monitor accelerations: Present Monitor Decelerations: Absent Category of Tracing: Reactive Diagnosis, Plan/Disposition Final Diagnosis (1) Chronic hypertension: Status: Acute Plan/Disposition Plan: 31yo at 34w1d here for NST for chronic HTN. Pre-eclampsia/HELLP labs negative. Pts BPs are running higher, will start Labetalol 200mg BID. Pt checking her BPs at home regularly as well, aware of values of concern. Growth u/s scheduled for tomorrow. NST reactive. Continue twice weekly NST with weekly SELMA. OB Disposition: home
== END 2021-12-05 11:15 | disposition home or self-care (01) ==
LOC: OB 12-07 11:18
PROVIDERS: PCP Nurse Practitioner Family; Referring Provider Family Medicine; Visit Provider Family Medicine
DX: O10.913 Unspecified pre-existing hypertension complicating pregnancy, third trimester (principal); Z3A.34 34 weeks gestation of pregnancy
CPT/HCPCS: 36415; 59025; 59050; 80053; 82570; 84156; 85025; G0378; G0379

== ENCOUNTER → 2021-12-06 10:07 | Outpatient (CLI) | payer OTHER, SELFPAY ==
--- NOTE | 2021-12-06 10:08 | DI.US.S_ITS ---
PROCEDURE: US OB LIMITED INDICATIONS: growth, chronic HTN OUTSIDE/PRIOR DATING DATA: Last menstrual period (LMP): Unknown. First dating scan (date and location): [facility]; June 09, 2021. The calculations are made using the ultrasound ANNETTA of January 15, 2022. TECHNIQUE: Real-time scanning was performed of the fetus, with image documentation. COMPARISON: [facility], , OB LIMITED, 10/31/2021, 10:19. FINDINGS: A single living intrauterine gestation is present. Presentation: Cephalic Placenta: Placental position is anterior, without previa. Amniotic fluid index: 7.1 cm, normal range is 5-24 cm. Single deepest vertical pocket is 2.4 cm. heart rate: 139 beats per minute. Maternal cervical canal: Not well seen Estimated gestational age from initial scan: 34 weeks, 2 days. BPD: 8.1 cm HC: 29.1 cm AC: 26.5 cm FL: 6.2 cm Estimated weight percentile: 1759 g; 1 percentile Umbilical artery SD: 2.4, 2.3, 2.3, IMPRESSION: Single live intrauterine gestation as detailed above. Dictated by: Arnol Gutiérrez M.D. on 12/06/2021 at 12:39 Approved by: Arnol Gutiérrez M.D. on 12/06/2021 at 12:45
== END ==
PROVIDERS: PCP Nurse Practitioner Family; Referring Provider Family Medicine; Visit Provider Family Medicine
DX: O16.3 Unspecified maternal hypertension, third trimester; Z3A.34 34 weeks gestation of pregnancy
CPT/HCPCS: 76815

== ENCOUNTER 2021-12-08 08:41 | Outpatient (CLI) | payer OTHER, SELFPAY ==
--- NOTE | 2021-12-08 09:49 | P.TNLD_ITS ---
Visit Information Visit Information Date of evaluation: 12/08/21 Primary OB Provider: Daisy Penaloza Reason for Evaluation: Yes non-stress test non-stress test reason: hypertension/pre-eclampsia Comments/Additional reasons for admission: 31yo at 34w4d here for NST for chronic HTN and likely IUGR. No vaginal bleeding, LOF, or contractions. She is feeling her baby move regularly. [facility] Medical History (Updated 11/08/21 @ 12:05 by Daisy Penaloza MD) Elevated blood pressure reading without diagnosis of hypertension Oligomenorrhea Seizure in childhood (~1990) Surgical History (Updated 06/16/21 @ 10:20 by Kalli Lee RN) [place] teeth extracted Family History (Updated 06/16/21 @ 10:30 by Kalli Lee RN) Mother Diabetes mellitus Father Diabetes mellitus Grandmother Diabetes mellitus Grandfather Diabetes mellitus Grandmother Diabetes mellitus Grandfather Diabetes mellitus Social History marital status: number of children: 2 household members: spouse and children lives independently: Yes caregiver/support person: No housing: house pets and animals: No education level: college occupational status: employed current occupational exposures/hazards: No zonia/yarsani: Restorationist special zonia needs: No seatbelt use: always helmet use: Yes water heater temp set < 120 deg: No working smoke detector in home: Yes fire extinguisher in home: No carbon monox detector in home: No firearms in home: No do you feel safe at home: Yes Smoking Status: Never smoker second hand exposure: Yes ( smokes outside, she sometimes gets off-gas fumes. ) alcohol intake: former substance use type: does not use during the past year weight has: increased > 10 lbs well-balanced diet: about half the time daily servings fruits/ve-4 caffeine: Yes (1/2 soda sometimes. ) eating out: 1-3 times/week Type(s) of exercise: walking and normal ROM and activity frequency: daily duration: 15-30 minutes/day Evaluation Evaluation Baseline heart rate: 150 Variability: Moderate (11-25) monitor accelerations: Present Monitor Decelerations: Absent Category of Tracing: Reactive Diagnosis, Plan/Disposition Final Diagnosis (1) : Status: Acute (2) Chronic hypertension: Status: Acute (3) IUGR (intrauterine growth restriction): Status: Resolved Plan/Disposition Plan: 31yo at 34w4d here for NST for chronic HTN and likely IUGR. NST reactive. Continue twice weekly NST with weekly SELMA/BPP/Doppler. MFM referral placed. OB Disposition: home
== END 2021-12-08 09:50 | disposition home or self-care (01) ==
LOC: OB 12-13 11:56
PROVIDERS: PCP Nurse Practitioner Family; Referring Provider Family Medicine; Visit Provider Family Medicine
DX: O10.913 Unspecified pre-existing hypertension complicating pregnancy, third trimester (principal); O36.5930 Maternal care for other known or suspected poor fetal growth, third trimester, not applicable or unspecified; Z3A.34 34 weeks gestation of pregnancy
CPT/HCPCS: 59025; G0378; G0379

== ENCOUNTER 2021-12-11 11:14 | Outpatient (CLI) | payer OTHER, SELFPAY ==
--- NOTE | 2021-12-11 11:27 | DI.US.S_ITS ---
PROCEDURE: US OB BIOPHYSICAL PROFILE INDICATIONS: hypertension, pre-eclampsia OUTSIDE/PRIOR DATING DATA: Last menstrual period (LMP): Not known LMP-based estimated date of delivery (ANNETTA): Not applicable First dating scan (date and location): June 09, 2021. Estimated date of delivery (ANNETTA) from first dating scan: January 15, 2022 The calculations are made using the ultrasound ANNETTA of January 15, 2022 TECHNIQUE: Real-time scanning was performed of the fetus for biophysical profile, with image documentation. Color and pulse Doppler interrogation was also performed of the umbilical artery near its insertion into the placenta. Endovaginal scanning: Performed COMPARISON: [facility], OB LIMITED, 12/06/2021, 10:58. [facility], OB LIMITED, 10/31/2021, 10:19. [facility], OB LIMITED, 10/25/2021, 13:32. [facility], OB LIMITED, 10/24/2021, 12:40. [facility] OB >= 14 WEEKS FETUS, 08/31/2021, 12:21. [facility], OB <= 14 WEEKS FETUS, 06/09/2021, 10:02. FINDINGS: General: A single living intrauterine gestation is present. Presentation: Vertex Placenta: Placental position is anterior, without previa. Amniotic fluid index: 7.8 cm, normal range is 5-24 cm. Single deepest vertical pocket is 2.5 cm. heart rate: 152 beats per minute. Maternal cervical canal: Not well visualized. Estimated gestational age from initial scan: 35 weeks 0 days Biophysical profile: Tone: 2 points. Movement: 2 points. Respiration: 2 points. Largest pocket of fluid: 2 points. Umbilical artery Doppler: S/D ratio ranges from 2.1-2.3 IMPRESSION: 1. Single living intrauterine . 2. Biophysical profile score 8/8. Dictated by: Sonali Solis MD, PhD on 12/11/2021 at 11:18 We strive to produce accurate, complete, and clear reports of imaging services. To assist us in improving patient care, this report was composed using standard report templates and voice recognition software. Therefore, it may contain abnormal punctuation, misrecognitions, insertions and/or omissions. Occasional wrong-word or sound-alike substitutions may occur. Though we review the report and make efforts to correct it, we do recommend that the report be read carefully in proper context to recognize any text inaccuracies. Approved by: Sonali Solis MD, PhD on 12/11/2021 at 11:23
--- NOTE | 2021-12-11 11:57 | PM.OBTRLD ---
Visit Information Visit Information Date of evaluation: 12/11/21 Primary OB Provider: Daisy Penaloza On-call OB Provider: Devora Plata Reason for Evaluation: Yes non-stress test non-stress test reason: hypertension/pre-eclampsia Vital Signs Vital Signs: Temperature 35.7? blood pressure 130/87 heart rate 80 PFSH Medical History Elevated blood pressure reading without diagnosis of hypertension Oligomenorrhea Seizure in childhood (~1990) Surgical History [place] teeth extracted Family History Mother Diabetes mellitus Father Diabetes mellitus Grandmother Diabetes mellitus Grandfather Diabetes mellitus Grandmother Diabetes mellitus Grandfather Diabetes mellitus Social History marital status: number of children: 2 household members: spouse and children lives independently: Yes caregiver/support person: No housing: house pets and animals: No education level: college occupational status: employed current occupational exposures/hazards: No zonia/oriental orthodox: Jew special zonia needs: No seatbelt use: always helmet use: Yes water heater temp set < 120 deg: No working smoke detector in home: Yes fire extinguisher in home: No carbon monox detector in home: No firearms in home: No do you feel safe at home: Yes Smoking Status: Never smoker second hand exposure: Yes ( smokes outside, she sometimes gets off-gas fumes. ) alcohol intake: former substance use type: does not use during the past year weight has: increased > 10 lbs well-balanced diet: about half the time daily servings fruits/ve-4 caffeine: Yes (1/2 soda sometimes. ) eating out: 1-3 times/week Type(s) of exercise: walking and normal ROM and activity frequency: daily duration: 15-30 minutes/day Evaluation Evaluation Baseline heart rate: 130 Variability: Moderate (11-25) monitor accelerations: Present Monitor Decelerations: Absent Category of Tracing: Reactive Diagnosis, Plan/Disposition Final Diagnosis (1) 35 weeks gestation of : Status: Acute (2) Chronic hypertension: Status: Acute Plan/Disposition Plan: 31yo at 35 weeks here for NST for chronic HTN and likely IUGR.? NST reactive.? SELMA 7.8, umbilical artery Dopplers normal. BPP 8/8. Continue twice weekly NST with weekly SELMA/BPP/Doppler.? Follow-up with Dr. Penaloza as scheduled. OB Disposition: home
== END 2021-12-11 12:18 | disposition home or self-care (01) ==
LOC: LABOR 11:20 → OB 12-13 11:57
PROVIDERS: PCP Family Medicine; Referring Provider Family Medicine; Visit Provider Family Medicine
DX: O10.913 Unspecified pre-existing hypertension complicating pregnancy, third trimester (principal); Z3A.35 35 weeks gestation of pregnancy
CPT/HCPCS: 59025; 76819; G0378; G0379

== ENCOUNTER → 2021-12-13 11:18 | Outpatient (CLI) | payer OTHER, SELFPAY ==
[2021-12-15 09:20] LABS: Strep Grp B PCR NEG for Grp B Strep
== END ==
PROVIDERS: PCP Family Medicine; Referring Provider Family Medicine; Visit Provider Family Medicine
DX: Z3A.35 35 weeks gestation of pregnancy (principal)
CPT/HCPCS: 87653

== ENCOUNTER 2021-12-15 09:21 | Outpatient (CLI) | payer OTHER, SELFPAY ==
--- NOTE | 2021-12-15 09:56 | P.TNLD_ITS ---
Visit Information Visit Information Date of evaluation: 12/15/21 Primary OB Provider: Daisy Penaloza Reason for Evaluation: Yes non-stress test non-stress test reason: hypertension/pre-eclampsia Comments/Additional reasons for admission: 31yo at 35w4d here for NST for chronic HTN. Pt is feeling baby move regularly. No LOF, contractions, vaginal bleeding. [facility] Medical History Elevated blood pressure reading without diagnosis of hypertension Oligomenorrhea Seizure in childhood (~1990) Surgical History [place] teeth extracted Family History Mother Diabetes mellitus Father Diabetes mellitus Grandmother Diabetes mellitus Grandfather Diabetes mellitus Grandmother Diabetes mellitus Grandfather Diabetes mellitus Social History marital status: number of children: 2 household members: spouse and children lives independently: Yes caregiver/support person: No housing: house pets and animals: No education level: college occupational status: employed current occupational exposures/hazards: No zonia/caodaism: Presybeterian special zonia needs: No seatbelt use: always helmet use: Yes water heater temp set < 120 deg: No working smoke detector in home: Yes fire extinguisher in home: No carbon monox detector in home: No firearms in home: No do you feel safe at home: Yes Smoking Status: Never smoker second hand exposure: Yes ( smokes outside, she sometimes gets off-gas fumes. ) alcohol intake: former substance use type: does not use during the past year weight has: increased > 10 lbs well-balanced diet: about half the time daily servings fruits/ve-4 caffeine: Yes (1/2 soda sometimes. ) eating out: 1-3 times/week Type(s) of exercise: walking and normal ROM and activity frequency: daily duration: 15-30 minutes/day Evaluation Evaluation Baseline heart rate: 130 Variability: Moderate (11-25) monitor accelerations: Present Monitor Decelerations: Absent Category of Tracing: Reactive Diagnosis, Plan/Disposition Final Diagnosis (1) Chronic hypertension: Status: Acute (2) 35 weeks gestation of : Status: Acute Plan/Disposition Plan: 31yo at 35w4d here for NST for chronic HTN. NST reactive. MFM appt scheduled for possible IUGR. Continue twice weekly NST with weekly BPP/doppler. OB Disposition: home
== END 2021-12-15 10:02 | disposition home or self-care (01) ==
LOC: OB 12-19 07:32
PROVIDERS: PCP Family Medicine; Referring Provider Family Medicine; Visit Provider Family Medicine
DX: O10.913 Unspecified pre-existing hypertension complicating pregnancy, third trimester (principal); Z3A.35 35 weeks gestation of pregnancy
CPT/HCPCS: 59025; G0378; G0379

== ENCOUNTER 2021-12-19 09:17 | Outpatient (CLI) | payer OTHER, SELFPAY ==
--- NOTE | 2021-12-19 10:07 | P.TNLD_ITS ---
Visit Information Visit Information Date of evaluation: 12/19/21 Primary OB Provider: Daisy Penaloza Reason for Evaluation: Yes non-stress test non-stress test reason: hypertension/pre-eclampsia Comments/Additional reasons for admission: 31yo at 36w1d here for NST for chronic HTN and IUGR. Pt with regular movement. No vaginal bleeding, LOF, contractions. [facility] Medical History Elevated blood pressure reading without diagnosis of hypertension Oligomenorrhea Seizure in childhood (~1990) Surgical History [place] teeth extracted Family History Mother Diabetes mellitus Father Diabetes mellitus Grandmother Diabetes mellitus Grandfather Diabetes mellitus Grandmother Diabetes mellitus Grandfather Diabetes mellitus Social History marital status: number of children: 2 household members: spouse and children lives independently: Yes caregiver/support person: No housing: house pets and animals: No education level: college occupational status: employed current occupational exposures/hazards: No zonia/mandaen: Gnosticist special zonia needs: No seatbelt use: always helmet use: Yes water heater temp set < 120 deg: No working smoke detector in home: Yes fire extinguisher in home: No carbon monox detector in home: No firearms in home: No do you feel safe at home: Yes Smoking Status: Never smoker second hand exposure: Yes ( smokes outside, she sometimes gets off-gas fumes. ) alcohol intake: former substance use type: does not use during the past year weight has: increased > 10 lbs well-balanced diet: about half the time daily servings fruits/ve-4 caffeine: Yes (1/2 soda sometimes. ) eating out: 1-3 times/week Type(s) of exercise: walking and normal ROM and activity frequency: daily duration: 15-30 minutes/day Evaluation Evaluation Baseline heart rate: 150 Variability: Moderate (11-25) monitor accelerations: Present Monitor Decelerations: Absent Category of Tracing: Reactive Diagnosis, Plan/Disposition Plan/Disposition Plan: 31yo at 36w1d here for NST for chronic HTN and IUGR. Reactive NST. Plan on BPP/Dopplers on Saturday with repeat NST. OB Disposition: home
== END 2021-12-19 10:15 | disposition home or self-care (01) ==
LOC: LABOR 10:11 → OB 12-20 13:10
PROVIDERS: PCP Family Medicine; Referring Provider Family Medicine; Visit Provider Family Medicine
DX: O10.913 Unspecified pre-existing hypertension complicating pregnancy, third trimester (principal); O36.5930 Maternal care for other known or suspected poor fetal growth, third trimester, not applicable or unspecified; Z3A.36 36 weeks gestation of pregnancy
CPT/HCPCS: 59025; G0378; G0379

== ENCOUNTER → 2022-07-03 09:59 | Outpatient (CLI) | payer OTHER, SELFPAY ==
--- NOTE | 2022-07-03 10:00 | DI.US.S_ITS ---
PROCEDURE: US OB <= 14 WEEKS FETUS INDICATIONS: DATES OUTSIDE/PRIOR DATING DATA: First dating scan (date and location): 07/03/2022. Estimated date of delivery (ANNETTA) from first dating scan: 02/10/2023. The calculations are made using the ANNETTA of 02/10/2023. TECHNIQUE: Real-time scanning was performed of the fetus and maternal pelvic organs, with image documentation. Endovaginal scanning was also performed to better visualize the fetus and maternal ovaries. COMPARISON: None. FINDINGS: Embryo: Lastrup-rump length 1.8 centimeters. Yolk sac noted. heart rate 180 beats per minute. Maternal organs: Ovaries normal. Left corpus luteum cyst noted. IMPRESSION: Single living intrauterine gestation, 8 weeks 2 days estimated gestational age. We strive to produce accurate, complete, and clear reports of imaging services. To assist us in improving patient care, this report was composed using standard report templates and voice recognition software. Therefore, it may contain abnormal punctuation, insertions and/or omissions. Occasional wrong-word or sound-alike substitutions may occur. Though we review the report and make efforts to correct it, we do recommend that the report be read carefully in proper context to recognize any text inaccuracies. Dictated by: Robel Oquendo M.D. on 07/03/2022 at 16:38 Approved by: Robel Oquendo M.D. on 07/03/2022 at 16:39
== END ==
PROVIDERS: PCP Family Medicine; Referring Provider Family Medicine; Visit Provider Family Medicine
DX: Z34.81 Encounter for supervision of other normal pregnancy, first trimester (principal); Z3A.08 8 weeks gestation of pregnancy
CPT/HCPCS: 76801; 76817

== ENCOUNTER → 2022-07-10 14:26 | Outpatient (CLI) | payer OTHER, SELFPAY ==
[2022-07-10 15:42] LABS: Add Manual Diff / Slide Review NO; Basophils Absolute Auto 0 /uL (0-100); Basophils Percent Auto 0.1 % (0-2); Eosinophils Absolute Auto 0 /uL (0-450); Eosinophils Percent Auto 0.4 % (2-4); Hematocrit 40.6 % (36-46); Hemoglobin 13.6 g/dL (12.0-16.0); Lymphocytes Absolute Auto 1800 /uL (1100-4500); Lymphocytes Percent Auto 17.3 % (25-40); Mean Corpuscular HGB Conc 33.5 % (30-36); Mean Corpuscular Hemoglobin 27.4 PG (26-34); Mean Corpuscular Volume 81.8 fL (80-100); Monocytes Absolute Auto 600 /uL (0-900); Monocytes Percent Auto 5.5 % (3-14); Neutrophils Absolute Auto 7900 /uL (1500-7000); Neutrophils Percent Auto 76.7 % (50-75); Platelet Count 287 X10^3/uL (150-400); Red Blood Cell Count 4.96 X10^6/uL (4.0-5.2); Red Cell Distribution Width 13.9 % (11.6-14.8); White Blood Cell Count 10.4 X10^3/uL (4.5-11.0)
[2022-07-11 16:14] LABS: Hepatitis B Surface Antigen NEGATIVE s/c (NEGATIVE); Rubella Antibody IgG 97.7 IU/mL (>15)
[2022-07-11 16:28] LABS: HIV 1 & 2 Ab/Ag 4th Gen Combo NEGATIVE (NEGATIVE); Hep C Virus Ab w/Reflex Quant NEGATIVE s/c (NEGATIVE)
[2022-07-12 04:43] LABS: RPR Screen Non Reactive (Non Reactive)
[2022-07-12 06:06] LABS: Varicella IgG Antibody 343 index (Immune >165)
== END ==
PROVIDERS: PCP Family Medicine; Referring Provider Family Medicine; Visit Provider Family Medicine
DX: Z34.81 Encounter for supervision of other normal pregnancy, first trimester (principal)
CPT/HCPCS: 36415; 80055; 86787; 86803; 86850; 86900; 86901; 87389

== ENCOUNTER → 2022-08-17 14:24 | Outpatient (ROUT) | payer OTHER, SELFPAY ==
[2022-08-17 14:40] LABS: Appearance Urine UA CLOUDY; Bilirubin Urine UA NEGATIVE (NEGATIVE); Color Urine UA YELLOW; Glucose Urine UA NEGATIVE (Negative); Ketones Urine UA NEGATIVE (NEGATIVE); Leukocyte Esterase Urine UA 2+ (NEGATIVE); Nitrite Urine UA NEGATIVE (Negative); Occult Blood Urine UA NEGATIVE (Negative); Protein Urine UA NEGATIVE (Negative); Urobilinogen Urine UA 0.2 E.U./dL (0.2)
[2022-08-17 14:50] LABS: Amorphous Sediment Urine 2+; Bacteria Urine Few (2-10); Culture Indicated Urine Specimen Cultured; Mucus Urine 1+ (Negative); RBC Urine None Seen (0-5/HPF); Squamous Epithelial Cell Urine 1-5 /HPF (0-5/HPF); WBC Urine 5-10/HPF (0-5/HPF)
[2022-08-17 15:02] LABS: Collection Time Urine 24 Hours; Protein (Total) Urine Random 12 mg/dL (0-12); Total Protein 24 Hour Urine 138 mg/day (42-225); Total Volume Urine 1150 mL
[2022-08-17 15:03] LABS: Creatinine Urine Random 106.5 mg/dL; Protein (Total) Urine Random 12 mg/dL (0-12); Protein Creatinine Ratio Urine 0.11 GRAM/24H
== END ==
PROVIDERS: PCP Family Medicine; Visit Provider Family Medicine
DX: Z34.81 Encounter for supervision of other normal pregnancy, first trimester (principal); I10 Essential (primary) hypertension
CPT/HCPCS: 81003; 81015; 82570; 84156; 87077; 87086; 87186

== ENCOUNTER → 2022-09-24 09:38 | Outpatient (CLI) | payer OTHER, SELFPAY ==
--- NOTE | 2022-09-24 09:40 | DI.US.S_ITS ---
PROCEDURE: OB >= 14 WEEKS FETUS INDICATIONS: Anatomy Screen OUTSIDE/PRIOR DATING DATA: Last menstrual period (LMP): Unknown. LMP-based estimated date of delivery (ANNETTA): Not applicable First dating scan (date and location): 07/03/2022. Estimated date of delivery (ANNETTA) from first dating scan: 02/10/2023. TECHNIQUE: Real-time scanning was performed of the fetus, with image documentation and biometric measurements. Endovaginal scanning: No COMPARISON: [facility] OB >= 14 WEEKS FETUS, 08/31/2021, 12:21. [facility] OB <= 14 WEEKS FETUS, 07/03/2022, 10:06. FINDINGS: General: A single living intrauterine gestation is present. Presentation: Vertex. Placenta: Placental position is posterior , without previa. Amniotic fluid index: 11.3 cm, normal range is 5-24 cm. heart rate: 158 beats per minute. Maternal cervical canal: 3.6 cm long. Normal lower limit is 2.5 cm. biometrics: Biparietal diameter: 44 mm; 19 weeks 2 days Head circumference: 169 mm; 19 weeks 4 days Abdominal circumference: 142 mm; 19 weeks 4 days Femur length: 31 mm; 19 weeks 5 days Estimated gestational age based on initial OB ultrasound: 20 weeks 1 day Composite gestational age from present scan: 19 weeks 4 days Estimated weight and percentile: 303 g, which is at the 20th percentile for gestational age Anatomic survey: Neuro: Ventricles are non-dilated at less than 10 mm. Cisterna magna is normal at 3-11 mm. Cerebellum is normal in size and morphology. Nuchal skin fold: Normal at less than 6 mm between 14-21 weeks gestational age. Face: Nose and lips, facial profile are normal. Spine: No evidence for spina bifida. Heart: 4-chambered heart is present, with normal ventricular outflow tracts. There are 2 echogenic intracardiac foci within the left ventricle. Diaphragm: Diaphragm is intact. Stomach: Left-sided stomach is present. Kidneys: No hydronephrosis. Normal is less than 5 mm in 2nd trimester, less than 7 mm in 3rd trimester. Cord: 3-vessel cord has orthotopic insertion. Bladder: Normal in size. Extremities: All 4 extremities identified. IMPRESSION: 1. Single living intrauterine gestation. 2. Echogenic intracardiac foci as above. This has been associated with a slightly increased chance of chromosomal anomaly. Otherwise negative survey of anatomy. We strive to produce accurate, complete, and clear reports of imaging services. To assist us in improving patient care, this report was composed using standard report templates and voice recognition software. Therefore, it may contain abnormal punctuation, insertions and/or omissions. Occasional wrong-word or sound-alike substitutions may occur. Though we review the report and make efforts to correct it, we do recommend that the report be read carefully in proper context to recognize any text inaccuracies. Dictated by: Mj Cho M.D. on 09/24/2022 at 12:32 Transcribed by: THEODORE on 09/24/2022 at 12:35 Approved by: Mj Cho M.D. on 09/24/2022 at 16:51
== END ==
PROVIDERS: PCP Family Medicine; Referring Provider Family Medicine; Visit Provider Family Medicine
DX: Z34.92 Encounter for supervision of normal pregnancy, unspecified, second trimester (principal); Z3A.19 19 weeks gestation of pregnancy
CPT/HCPCS: 76811

== ENCOUNTER → 2022-09-26 08:50 | Outpatient (CLI) | payer OTHER, SELFPAY ==
[2022-09-26 10:15] LABS: Add Manual Diff / Slide Review NO; Basophils Absolute Auto 0 /uL (0-100); Basophils Percent Auto 0.1 % (0-2); Eosinophils Absolute Auto 100 /uL (0-450); Eosinophils Percent Auto 1.1 % (2-4); Hematocrit 37.1 % (36-46); Lymphocytes Absolute Auto 1800 /uL (1100-4500); Lymphocytes Percent Auto 19.2 % (25-40); Mean Corpuscular HGB Conc 32.4 % (30-36); Mean Corpuscular Hemoglobin 27.3 PG (26-34); Mean Corpuscular Volume 84.3 fL (80-100); Monocytes Absolute Auto 400 /uL (0-900); Monocytes Percent Auto 4.4 % (3-14); Neutrophils Absolute Auto 7000 /uL (1500-7000); Neutrophils Percent Auto 75.2 % (50-75); Platelet Count 238 X10^3/uL (150-400); Red Cell Distribution Width 14.2 % (11.6-14.8); White Blood Cell Count 9.3 X10^3/uL (4.5-11.0)
[2022-09-26 10:42] LABS: Alanine Aminotransferase 12 IU/L (<35); Albumin 3.9 g/dL (3.5-5.0); Albumin Globulin Ratio 1.1 (1.0-2.8); Alkaline Phosphatase 71 U/L (38-126); Aspartate Aminotransferase 17 IU/L (14-36); BUN Creatinine Ratio 11.1 (6-22); Bilirubin Total 0.2 mg/dL (0.2-1.3); Blood Urea Nitrogen 7 mg/dL (7-17); Calcium 9.1 mg/dL (8.4-10.2); Carbon Dioxide 25 mmol/L (22-32); Chloride 103 mmol/L (98-107); Estimated Glomerular Filt Rate > 60 mL/min (>60); Globulin 3.5 g/dL (1.7-4.1); Glucose 94 mg/dL (70-100); HEMOLYSIS < 15 (0-50); Potassium 4.4 mmol/L (3.4-5.1); Sodium 135 mmol/L (137-145); Total Protein 7.4 g/dL (6.3-8.2); Uric Acid 4.8 mg/dL (2.5-6.2)
[2022-09-26 11:13] LABS: Creatinine Urine Random 149.5 mg/dL; Protein (Total) Urine Random 10 mg/dL (0-12); Protein Creatinine Ratio Urine 0.06 GRAM/24H
[2022-09-26 11:14] LABS: Collection Time Urine 24 Hours; Protein (Total) Urine Random 15 mg/dL (0-12); Total Protein 24 Hour Urine 165 mg/day (42-225); Total Volume Urine 1100 mL
[2022-09-28 20:17] LABS: AFP, Serum 67.6 ng/mL (.); Estriol, Free 2.07 ng/mL (.); Inhibin A, MoM See interpretation. (.); Maternal Weight 141 lbs (.); Number of Fetuses No (.); OSBR Risk 1 IN 10000 (.); Results Report (.); Test Results See interpretation. (.); hCG, MoM See interpretation. (.); hCG, Serum 8801 mIU/mL (.)
== END ==
PROVIDERS: PCP Family Medicine; Referring Provider Family Medicine; Visit Provider Family Medicine
DX: Z34.92 Encounter for supervision of normal pregnancy, unspecified, second trimester (principal); Z13.79 Encounter for other screening for genetic and chromosomal anomalies; I10 Essential (primary) hypertension; Z3A.19 19 weeks gestation of pregnancy
CPT/HCPCS: 36415; 80053; 82043; 82105; 82570; 82677; 84156; 84550; 84702; 85025; 86336

== ENCOUNTER → 2022-10-09 09:20 | Outpatient (CLI) | payer OTHER, SELFPAY | PROVIDERS: PCP Family Medicine; Referring Provider Family Medicine; Visit Provider Family Medicine | DX: O28.3 Abnormal ultrasonic finding on antenatal screening of mother (principal); Z31.5 Encounter for procreative genetic counseling; Z13.79 Encounter for other screening for genetic and chromosomal anomalies | CPT/HCPCS: 36415 ==

== ENCOUNTER 2022-10-11 11:13 | Outpatient (CLI) | payer OTHER, SELFPAY ==
--- NOTE | 2022-10-11 11:46 | PM.OBTRLD ---
Visit Information Visit Information Date of evaluation: 10/11/22 Primary OB Provider: Daisy Penaloza On-call OB Provider: Idalia Rodrigez Reason for Evaluation: Yes other Comments/Additional reasons for admission: elevated blood pressure at dental office 32-year-old female at 23+wks presents for evaluation due to elevated blood pressure today. She has chronic hypertension and her labetalol was recently increased to 200 mg p.o. b.i.d.. She had an appointment with a dentist today and did not take her morning labetalol prior to the visit, due to not wanting to feel she had to urinate a lot wall at the office. Her blood pressure was significantly elevated at the dentist and the dentist did not proceed with scheduled visit and told her to call her OB Provider. Patient called her provider's office, and was advised to come to birthing center for further evaluation. On nursing interview, she reported BP has been overall controlled at home. She denied headache, scotomata, nausea or abdominal pain. Vital Signs Vital Signs: initial BP's 135/101, 136/102 pulse 92-94 1 hour after labetalol 200 mg by mouth, BP 140/90 [facility] Medical History (Updated 07/17/22 @ 02:02 by Daisy Penaloza MD) Elevated blood pressure reading without diagnosis of hypertension Oligomenorrhea Pre-eclampsia Seizure in childhood (~1990) Surgical History (Updated 01/09/22 @ 14:36 by Daisy Penaloza MD) S/P [place] teeth extracted Family History Mother Diabetes mellitus Father Diabetes mellitus Grandmother Diabetes mellitus Grandfather Diabetes mellitus Grandmother Diabetes mellitus Grandfather Diabetes mellitus Social History marital status: number of children: 3 household members: spouse and children lives independently: Yes caregiver/support person: No housing: house pets and animals: No education level: college (some college) occupational status: employed and previously employed current occupational exposures/hazards: No zonia/anabaptist: Rastafari special zonia needs: No travel history: recent ([place] and [place]) seatbelt use: always helmet use: Yes water heater temp set < 120 deg: No (will check and adjust) working smoke detector in home: Yes fire extinguisher in home: No carbon monox detector in home: Yes firearms in home: No do you feel safe at home: Yes Smoking Status: Never smoker second hand exposure: Yes ( smokes outside, she sometimes gets off-gas fumes. ) alcohol intake: former (Occasionally when not .) substance use type: does not use during the past year weight has: other (Still losing baby weight from last ) well-balanced diet: about half the time daily servings fruits/ve-4 caffeine: Yes (1/2 soda sometimes. ) eating out: 1-3 times/week Type(s) of exercise: none frequency: daily duration: 15-30 minutes/day Evaluation Evaluation Baseline heart rate: 150 Variability: Average (6-10) Diagnosis, Plan/Disposition Plan/Disposition Plan: 22 weeks . Chronic hypertension complicating . BP elevated due to patient not taking her morning medication; likely elevated more than normal due to being at the dentist's office. Her normal morning dose was given here, labetalol 200 mg by mouth. Repeat blood pressure 1 hour later, BP is 140/90, the same reading as her most recent office visit. She has no signs or symptoms of preeclampsia and BP is in her normal range after her labetalol, thus preeclamptic labs not drawn. EFM auscultation normal for gestational age. Patient discharged home to continue her routine OB care with next routine visit, call her provider earlier as needed. OB Disposition: home ( Keep routine OB appointment )
[2022-10-11] MEDS: LABETALOL 100 MG TABLET 200 MG PO (11:54)
== END 2022-10-11 13:15 | disposition home or self-care (01) ==
LOC: LABOR 11:26 → OB 10-23 09:54
PROVIDERS: PCP Family Medicine; Referring Provider Family Medicine; Visit Provider Family Medicine
DX: O10.912 Unspecified pre-existing hypertension complicating pregnancy, second trimester (principal); Z3A.22 22 weeks gestation of pregnancy
CPT/HCPCS: 59025; G0378; G0379

== ENCOUNTER → 2022-10-26 07:50 | Outpatient (CLI) | payer OTHER, SELFPAY ==
[2022-10-26 10:23] LABS: Add Manual Diff / Slide Review NO; Basophils Absolute Auto 0 /uL (0-100); Basophils Percent Auto 0.2 % (0-2); Eosinophils Absolute Auto 100 /uL (0-450); Eosinophils Percent Auto 0.8 % (2-4); Hematocrit 35.2 % (36-46); Hemoglobin 11.7 g/dL (12.0-16.0); Lymphocytes Absolute Auto 1800 /uL (1100-4500); Lymphocytes Percent Auto 17.4 % (25-40); Mean Corpuscular HGB Conc 33.2 % (30-36); Mean Corpuscular Hemoglobin 28.5 PG (26-34); Monocytes Absolute Auto 500 /uL (0-900); Monocytes Percent Auto 4.9 % (3-14); Neutrophils Absolute Auto 8100 /uL (1500-7000); Neutrophils Percent Auto 76.7 % (50-75); Platelet Count 237 X10^3/uL (150-400); Red Blood Cell Count 4.09 X10^6/uL (4.0-5.2); Red Cell Distribution Width 14.3 % (11.6-14.8); White Blood Cell Count 10.6 X10^3/uL (4.5-11.0)
[2022-10-26 10:54] LABS: Alanine Aminotransferase 13 IU/L (<35); Albumin 3.6 g/dL (3.5-5.0); Albumin Globulin Ratio 1.1 (1.0-2.8); Alkaline Phosphatase 71 U/L (38-126); Aspartate Aminotransferase 18 IU/L (14-36); BUN Creatinine Ratio 12.3 (6-22); Bilirubin Total 0.2 mg/dL (0.2-1.3); Blood Urea Nitrogen 7 mg/dL (7-17); Calcium 8.7 mg/dL (8.4-10.2); Carbon Dioxide 22 mmol/L (22-32); Chloride 104 mmol/L (98-107); Estimated Glomerular Filt Rate > 60 mL/min (>60); GTT (PREG) 1 Hour PP 50gm Dose 132 mg/dL (76-139); Globulin 3.2 g/dL (1.7-4.1); Glucose 132 mg/dL (70-100); HEMOLYSIS < 15 (0-50); Potassium 3.8 mmol/L (3.4-5.1); Sodium 134 mmol/L (137-145); Total Protein 6.8 g/dL (6.3-8.2); Uric Acid 4.5 mg/dL (2.5-6.2)
== END ==
PROVIDERS: PCP Family Medicine; Referring Provider Family Medicine; Visit Provider Family Medicine
DX: Z34.92 Encounter for supervision of normal pregnancy, unspecified, second trimester (principal); Z3A.24 24 weeks gestation of pregnancy; I10 Essential (primary) hypertension
CPT/HCPCS: 36415; 80053; 82950; 84550; 85025